=== PATIENT | male | born 1945 ===

== ENCOUNTER 2021-10-12 10:22 | Observation (INO) | payer MEDICARE ==
[2021-10-12] MEDS ORDERED: Sodium Chloride 0.9% 10 ML Syringe FLUSH PRN (11:23)
[2021-10-12] MEDS: Iodixanol 652 MG/ML 100 ML Bottle IV PRN (13:10)
[2021-10-12] MEDS: Sodium Chloride 0.9% 50 ML SDV FLUSH SCH (13:10)
[2021-10-12] MEDS ORDERED: HYDROmorphone 2 MG/ML Syringe IVPUSH PRN (13:24)
[2021-10-12] MEDS: Ketorolac 30 MG/ML SDV ONE (13:53)
[2021-10-12] MEDS: Ketorolac 30 MG/ML SDV IVPUSH ONE (14:59)
[2021-10-12] MEDS: Levofloxacin/Dextrose 5%-Water 750 MG in Levofloxacin/Dextrose 5%-Water 150 ML IV SCH (17:18)
[2021-10-12] MEDS ORDERED: Apixaban 5 MG Tab PO SCH (20:00)
[2021-10-12] MEDS: Apixaban 5 MG Tab PO ONE (20:11)
[2021-10-13] MEDS: Albuterol/Ipratropium 3.0-0.5 MG/3 ML Neb Soln NEB SCH (04:38)
[2021-10-13] MEDS: Doxycycline 100 MG Cap PO SCH (05:45)
[2021-10-13] MEDS: cefTRIAXone 1 GM in Sodium Chloride 0.9% 50 ML IV SCH (05:45)
[2021-10-13] MEDS: cefTRIAXone 1 GM Vial ONE (05:48)
[2021-10-13] MEDS: Doxycycline 100 MG Cap ONE (05:49)
[2021-10-13] MEDS ORDERED: Valsartan 160 MG Tab PO SCH (08:00)
[2021-10-13] MEDS ORDERED: PSYLLIUM PO SCH (08:00)
[2021-10-13] MEDS ORDERED: Hydrochlorothiazide 25 MG Tab PO SCH (08:00)
[2021-10-13] MEDS ORDERED: Ascorbic Acid 500 MG Tab PO SCH (08:00)
[2021-10-13] MEDS ORDERED: Metoprolol Succinate 25 MG Tab.ER PO SCH (08:00)
[2021-10-13] MEDS ORDERED: Glucosamine 500 MG Cap PO SCH (08:00)
== END 2021-10-13 11:20 ==
LOC: LB.ED 10:22 → LB.MS 13:30
PROVIDERS: ADMIT Surgery; ATTEND Surgery
DX: S40.812A Abrasion of left upper arm, initial encounter (principal); S40.811A Abrasion of right upper arm, initial encounter; I48.20 Chronic atrial fibrillation, unspecified; R09.02 Hypoxemia; J18.9 Pneumonia, unspecified organism; M54.9 Dorsalgia, unspecified; M17.9 Osteoarthritis of knee, unspecified; I10 Essential (primary) hypertension; Z20.822 Contact with and (suspected) exposure to COVID-19; Z79.899 Other long term (current) drug therapy; Z79.01 Long term (current) use of anticoagulants; Z88.8 Allergy status to other drugs, medicaments and biological substances; W19.XXXA Unspecified fall, initial encounter; Z86.16 Personal history of COVID-19; Z98.890 Other specified postprocedural states; Z88.1 Allergy status to other antibiotic agents
CPT/HCPCS: 36415; 36600; 70450; 71045; 71260; 72125; 72128; 72131; 80048; 81003; 82803; 85025; 85610; 93005; 96365; 96366; 96375; 99285; A0425; A0429; A9270; G0378; J0696; J1885; J1956; U0002; 93010; 96374; 99217; 99219; J7620